=== PATIENT | female | born 1950 | race Caucasian/White ===

== ENCOUNTER 2016-05-17 07:29 | Emergency (ER) | payer OTHER ==
[2016-05-17] MEDS ORDERED: OXYCODONE/APAP 5/325 TAB PO ONE (08:14)
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
[2016-05-17 10:49] VITALS: RESP 16
[2016-05-17 12:19] VITALS: BP 118/76; PULSE 72; TEMP 97.5; O2SAT 95
== END 2016-05-17 12:19 | disposition home or self-care (01) ==
DX: M79.621 Pain in right upper arm (principal)

== ENCOUNTER → 2018-04-03 | Outpatient (CLI) | payer OTHER | LOC: MERGE 14:47 → BMCIMAGING 14:47 | PROVIDERS: ATTEND Family Medicine | DX: M24.841 Other specific joint derangements of right hand, not elsewhere classified (principal); Z87.81 Personal history of (healed) traumatic fracture; Z98.890 Other specified postprocedural states ==

== ENCOUNTER 2018-05-28 10:39 | Day surgery (SDC) | payer OTHER ==
[2018-05-28] MEDS ORDERED: ceFAZolin 2 GM/DEXTROSE 100 ML IV ONE (10:59)
[2018-05-28] MEDS ORDERED: BUPIVACAINE/EPI 0.5% 30 ML SDV ONE (11:07)
[2018-05-28] MEDS ORDERED: BACITRACIN ZINC 0.5 OZ OINTTUBE TP ONE (11:07)
--- NOTE | 2018-05-28 11:43 | PDANEPAE ---
ANE Past Medical History - Cardiovascular History Hx Hypertension: No Hx Arrhythmias: No Hx Chest Pain: No Hx Coronary Artery / Peripheral Vascular Disease: No Hx CHF / Valvular Disease: No Hx Palpitations: No - Pulmonary History Hx COPD: No Hx Asthma/Reactive Airway Disease: No Hx Recent Upper Respiratory Infection: No Hx Oxygen in Use at Home: No Hx Sleep Apnea: No Sleep Apnea Screening Result - Last Documented: Negative - Neurologic History Hx Cerebrovascular Accident: No Hx Seizures: No Hx Dementia: No - Endocrine History Hx Diabetes: No - Renal History Hx Renal Disorders: No - Liver History Hx Hepatic Disorders: No - Neurological & Psychiatric Hx Hx Neurological and Psychiatric Disorders: Yes Neurological / Psychiatric History Comment: Grief. depression- son recently committed suicide. anxiety. insomnia - Cancer History Hx Cancer: No - Congenital Disorder History Hx Congenital Disorders: No - GI History Hx Gastrointestinal Disorders: Yes Gastrointestinal History Comment: hemorrhoids. anal fissure - Other Health History Other Health History: wears glasses for reading and driving - Chronic Pain History Chronic Pain: Yes (neck and thumbs) - Surgical History Prior Surgeries: right thumb surgery 02/2018. left thumb surgery 2014. c- section x2 ANE Review of Systems Review of Systems: - Exercise capacity METS (RN): 4 METS ANE Patient History - Allergies Allergies/Adverse Reactions: No Known Allergies Allergy (Verified 05/28/18 11:18) - Home Medications Home medications: home medication list seen and reviewed Home Medications: Herbals/Supplements -Info Only 05/24/18 [Last Taken 05/24/18] Meloxicam 05/24/18 [Last Taken 05/24/18] Prozac 10 MG (*) 05/24/18 [Last Taken 05/28/18 07:30] - NPO status NPO Since - Liquids (Date): 05/28/18 NPO Since - Liquids (Time): 08:30 NPO Since - Solids (Date): 05/27/18 NPO Since - Solids (Time): 20:00 - Anes Hx Anes Hx: no prior problems - Smoking Hx Smoking Status: Never smoked - Family Anes Hx Family Hx Anesthesia Complications: none ANE Labs/Vital Signs - Vital Signs Vital Signs: reviewed preoperatively; see RN documention for details Blood Pressure: 109/74 Heart Rate: 64 Respiratory Rate: 16 O2 Sat (%): 96 Height: 172.72 cm Weight: 53.524 kg ANE Physical Exam - Airway Neck exam: FROM Mallampati Score: Class 1 Mouth exam: normal dental/mouth exam - Pulmonary Pulmonary: clear to auscultation - Cardiovascular Cardiovascular: regular rate and rhythym - ASA Status ASA Status: II ANE Anesthesia Plan Anesthesia Plan: GA w LMA
[2018-05-28] MEDS ORDERED: MIDAZOLAM 2 MG/2 ML VIAL IVP ONE (11:46)
[2018-05-28] MEDS ORDERED: PROPOFOL 200 MG/20 ML VIAL ONE (11:54)
[2018-05-28] MEDS ORDERED: fentaNYL 100 MCG/2 ML INJ ONE (11:54)
[2018-05-28] MEDS ORDERED: DEXAMETHASONE 4 MG/ML VIAL ONE ×3 (11:56→12:40)
[2018-05-28] MEDS ORDERED: METOCLOPRAMIDE 10 MG/2 ML VIAL ONE (11:57)
[2018-05-28] MEDS ORDERED: ONDANSETRON 4 MG/2 ML VIAL ONE (11:58)
[2018-05-28] MEDS ORDERED: KETOROLAC 30 MG/1 ML SDV ONE (11:58)
[2018-05-28] MEDS ORDERED: PROPOFOL/EMULSION 500 MG/50 ML BOTTLE IV ONE (12:00)
--- NOTE | 2018-05-28 12:13 | PDHPUP ---
History & Physical Update H&P update statement: This history and physical update is based on an assessment of the patient which was completed after admission or registration (within 24 hours), but prior to the surgery/procedure. H&P update: H&P reviewed & patient examined, no change in patient's condition since H&P completed
[2018-05-28] MEDS ORDERED: ePHEDrine SULFATE 25 MG/5 ML SYR ONE (12:45)
[2018-05-28] MEDS ORDERED: SUCCINYLCHOLINE CHLORIDE 200 MG/10 ML SYR IVP ONE (12:45)
[2018-05-28] MEDS ORDERED: ONDANSETRON 4 MG/2 ML VIAL IVP PRN (12:57)
[2018-05-28] MEDS ORDERED: MEPERIDINE 25 MG/0.5 ML AMP IVP PRN (12:57)
[2018-05-28] MEDS ORDERED: fentaNYL 100 MCG/2 ML INJ IVP PRN (12:57)
[2018-05-28] MEDS ORDERED: PROMETHAZINE HCL 25 MG/ML INJ IVP PRN (12:57)
[2018-05-28] MEDS ORDERED: HYDROmorphONE/DILAUDID 2 MG/ML INJ IVP PRN (12:57)
[2018-05-28] MEDS ORDERED: NALOXONE HCL 0.4 MG/ML INJ IVP PRN (12:57)
[2018-05-28] MEDS ORDERED: DIAZEPAM 5 MG/ML 1 ML SYR IVP PRN (12:57)
[2018-05-28] MEDS ORDERED: ALBUTEROL 3 ML DEYVIAL IH PRN (12:57)
--- NOTE | 2018-05-28 13:14 | POSTANESTH ---
Post Anesthetic Evaluation Cardiovascular Status: Normal, Stable Respiratory Status: Normal, Stable Level of Consciousness/Mental Status: Can Participate in Eval Pain Control: Adequate, Prn Tx Ordered Nausea/Vomiting Control: Adequate, Prn Tx Ordered Complications Possibly Related to Anesthesia: None Noted
[2018-05-28] MEDS ORDERED: HYDROCODONE/APAP 5/325 TAB PO PRN (13:16)
[2018-05-28] MEDS ORDERED: ONDANSETRON DISINTEGRATING 4 MG TAB PO PRN (13:16)
--- NOTE | 2018-05-28 13:16 | POSTOPPROG ---
Post Op Note Date of Operation: 05/28/18 Surgeon: Dariusz Garcia (, FACS) Anesthesiologist: Hiral Bowers MD Anesthesia: GET(General Endotracheal) Pre-op Diagnosis: posterior anal fissure with sentinel tag Post-op Diagnosis: healed posterior anal fissure with sentinel tag Procedure: EUA/excision of sentinel skin tag Findings: healed posterior midline fissure with sentinel tag Inf/Abcess present in the surg proc area at time of surgery?: No EBL: Minimal (2ml)
[2018-05-28] MEDS ORDERED: HYDROCODONE/APAP 5/325 TAB ONE (13:29)
--- NOTE | 2018-05-28 14:25 | GOP ---
[f rep st] OPERATIVE REPORT DATE OF OPERATION: 05/28/2018 SURGEON: Dariusz Garcia MD, FACS ANESTHESIA: General endotracheal. ANESTHESIOLOGIST: Elissa Love M.D. PREOPERATIVE DIAGNOSIS: 1. Anal fissure with posterior sentinel tag. 2. Asymptomatic hemorrhoids. POSTOPERATIVE DIAGNOSIS: 1. Anal fissure with posterior sentinel tag. 2. Asymptomatic hemorrhoids. PROCEDURE PERFORMED: Exam under anesthesia, excision of posterior sentinel tag. FINDINGS: Healed posterior midline fissure and circumferential grade 1 internal hemorrhoids. No external hemorrhoids. Small posterior sentinel tag. ESTIMATED BLOOD LOSS: 2 cc. INDICATIONS: The patient is a 68-year-old female with a history of anal fissure that healed after she became a vegan and no longer had constipated stools. She did however, have a persistent posterior sentinel tag which was troublesome to her and she requested elective resection. DESCRIPTION OF PROCEDURE: After informed consent was obtained, the patient was brought to the operating room and placed under general anesthesia. She was carefully padded, placed in lithotomy position, padding all pressure points. The perineum was prepped and draped in usual fashion. Before proceeding, a time -out identification of the patient was performed. 0.25% Marcaine was used to infiltrate the perineum posterior to the midline and deep into the perianal musculature. Digital exam was performed followed by introduction of a pediatric anoscope and all 4 quadrants were visualized. The patient had a healed posterior midline fissure. There was no evidence of stricture formation and no significant hemorrhoids. She did have some grade 1 internal hemorrhoids circumferentially. The posterior skin tag was chronically irritated and was excised as follows. An elliptical incision was made encompassing the skin tag to the anal verge and posteriorly for a distance of approximately 10 mm. This was excised down to the internal sphincter mechanism which was preserved in the course of dissection. The specimen was removed from the field. Hemostasis was secured with cautery. The skin was closed with interrupted 4-0 chromic sutures. Topical bacitracin ointment was applied. The patient was extubated and brought to the recovery room in satisfactory condition. Needle, sponge, and instrument count correct. COMPLICATIONS: None. /[id number]/MODL MTDD
[2018-05-28 14:28] VITALS: BP 108/68
== END 2018-05-28 14:30 | disposition home or self-care (01) ==
LOC: FSGY 10:39
PROVIDERS: ATTEND Surgery
PROC: 0DJD8ZZ Inspection of Lower Intestinal Tract, Via Natural or Artificial Opening Endoscopic (ICD-10-PCS; principal; 2018-05-28 12:30)
PROC: 0HB8XZZ Excision of Buttock Skin, External Approach (ICD-10-PCS; principal; 2018-05-28 12:30)
DX: K64.4 Residual hemorrhoidal skin tags (principal)
CPT/HCPCS: J0330; J0690; J1100; J1885; J2250; J2405; J2704; J2765; J3010

== ENCOUNTER 2018-09-24 07:06 | Observation (INO) | payer OTHER | END 2018-09-25 13:31 | disposition home or self-care (01) | LOC: F3E 07:06 → F1N 12:37 ==